=== PATIENT | male | born 1990 | race African-American/Black ===

== ENCOUNTER 2016-09-06 15:01 | Emergency (ER) | payer SELFPAY ==
[~2016-09-06] VITALS: Ht 188 cm; Wt 99.8 kg
[2016-09-06 15:03] VITALS: BP 123/78
== END 2016-09-06 15:11 | disposition home or self-care (01) ==
LOC: ER 15:03
DX: T73.0XXA Starvation, initial encounter (principal); Z59.0 Homelessness; X58.XXXA Exposure to other specified factors, initial encounter
CPT/HCPCS: 99283; A4606; Z7610

== ENCOUNTER 2017-02-16 20:03 | Emergency (ER) | payer MEDICAID ==
[~2017-02-16] VITALS: Ht 170.2 cm; Wt 63.5 kg
[2017-02-16 20:08] VITALS: BP 128/76
== END 2017-02-16 20:28 | disposition home or self-care (01) ==
LOC: ER 20:05
DX: M79.604 Pain in right leg (principal); Z59.0 Homelessness; M79.1 Myalgia
CPT/HCPCS: 99283; A4606; Z7610